=== PATIENT | female | born 1975 | race Caucasian/White ===

== ENCOUNTER → 2016-05-15 08:13 | Outpatient (CLI) | payer BC ==
[2014-11-15 10:25] VITALS: BMI 35.9
[~2016-05-15 08:13] MED LIST: CELEXA40 MG PO; NORCO 7.5/325 T1 TA1 PO; PROTONIX40 MG PO; STERAPRED DS 1010 MG PO; TOPAMAX100 MG PO; TOPAMAX50 MG PO; WELLBUTRIN SR150 MG PO
== END | disposition home or self-care (01) ==
LOC: D.CT 08:13
DX: R93.8 Abnormal findings on diagnostic imaging of other specified body structures (principal)